=== PATIENT | female | born 1985 | race Caucasian/White ===

== ENCOUNTER 2020-12-25 16:10 | Outpatient (CLI) | payer BC ==
[2020-12-25] MEDS ORDERED: iohexol 300mg/ml 100ml inj. ONE (16:24)
== END 2020-12-25 23:59 | disposition home or self-care (01) ==
LOC: 64 CT 16:10
PROVIDERS: ATTEND Family Medicine
DX: K35.80 Unspecified acute appendicitis (principal); N75.0 Cyst of Bartholin's gland; Z97.5 Presence of (intrauterine) contraceptive device
CPT/HCPCS: 74177; Q9967